=== PATIENT | female | born 1995 | race Caucasian/White ===

== ENCOUNTER 2018-07-22 03:29 | Inpatient (IN) | payer OTHER ==
[2018-07-22] MEDS ORDERED: SODIUM CHLORIDE FLUSH 0.9% 10 ML SYRINGE IVP PRN (07:55)
[2018-07-22] MEDS ORDERED: fentaNYL 100 MCG/2 ML VIAL IVP PRN (07:59)
[2018-07-22] MEDS ORDERED: LACTATED RINGERS 1,000 ML IV ONE (08:00)
[2018-07-22] MEDS: SODIUM CHLORIDE FLUSH 0.9% 10 ML SYRINGE IVP SCH (08:38)
[2018-07-22 09:02] LABS: BASOPHILS # (AUTO) 0.1 10^3/uL (0.0-0.1); BASOPHILS % (AUTO) 0.8 %; EOSINOPHILS # (AUTO) 0.2 10^3/uL (0.0-0.7); EOSINOPHILS % (AUTO) 1.4 %; HGB - HEMOGLOBIN 12.2 g/dL (12.0-16.0); LYMPHOCYTES # (AUTO) 1.2 10^3/uL (1.5-3.5); LYMPHOCYTES % (AUTO) 10.9 %; MEAN CORPUSCULAR HEMOGLOBIN 28.4 pg (27.0-31.0); MEAN CORPUSCULAR HGB CONC 33.3 g/dL (32.0-36.0); MEAN CORPUSCULAR VOLUME 85.4 fL (81.0-99.0); MEAN PLATELET VOLUME 9.9 fL (7.9-10.8); MONOCYTES # (AUTO) 0.6 10^3/uL (0.0-1.0); MONOCYTES % (AUTO) 4.9 %; NEUTROPHILS # (AUTO) 9.4 10^3/uL (1.5-6.6); PLT - PLATELET COUNT 214 10^3/uL (130-450); RED BLOOD COUNT 4.29 10^6/uL (4.20-5.40); RED CELL DISTRIBUTION WIDTH 15.8 % (12.0-15.0); WHITE BLOOD COUNT 11.5 x10^3/uL (4.8-10.8)
[2018-07-22] MEDS ORDERED: ONDANSETRON 4 MG/2 ML VIAL IVP PRN ×4 (09:20→22:26)
[2018-07-22] MEDS ORDERED: fent/BUPIV 2 MCG/0.125% 250 ML EP ONE ×2 (09:22→21:55)
[2018-07-22] MEDS: LACTATED RINGERS 1,000 ML IV SCH ×3 (09:47→18:33)
--- NOTE | 2018-07-22 10:11 | ANESTHESIA ---
Pre-Anesthesia VS, & Labs - Diagnosis Active labor - Procedure Labor epidural Vital Signs: Temp Pulse Resp BP Pulse Ox 36.9 C 108 H 20 138/72 H 100 07/22/18 04:05 07/22/18 04:05 07/22/18 04:05 07/22/18 04:05 07/22/18 04:05 Height 5 ft 3 in Weight (kg) 85.275 kg - NPO Other (Ice chips) - Is Patient ?: Yes - Lab Results Current Lab Results: Laboratory Tests 07/22/18 08:52: Blood Type A POSITIVE, Antibody Screen NEGATIVE 07/22/18 08:52: WBC 11.5 H, RBC 4.29, Hgb 12.2, Hct 36.7 L, MCV 85.4, MCH 28.4, MCHC 33.3, RDW 15.8 H, Plt Count 214, MPV 9.9, Neut # (Auto) 9.4 H, Lymph # (Auto) 1.2 L, [place] # (Auto) 0.6, Eos # (Auto) 0.2, Baso # (Auto) 0.1, Absolute Nucleated RBC 0.00, Nucleated RBC % 0.0 Fish Bones: 07/22/18 08:52 Home Medications and Allergies Active Medications Fentanyl (Fentanyl) 100 mcg IVP Q1HR PRN PRN Reason: PAIN Last Admin: 07/22/18 08:38 Dose: 100 mcg Lactated Ringer's (Lr) 1,000 mls @ 150 mls/hr IV .Q6H40M [facility] Last Admin: 07/22/18 09:47 Dose: 150 mls/hr Ondansetron HCl (Zofran Inj) 4 mg IVP Q4HR PRN PRN Reason: Nausea / Vomiting Last Admin: 07/22/18 09:27 Dose: 4 mg Sodium Chloride (Normal Saline Flush 0.9%) 10 ml IVP PRN PRN PRN Reason: NEEDED PER PROVIDER ORDERS Last Admin: 07/22/18 08:38 Dose: 10 ml Sodium Chloride (Normal Saline Flush 0.9%) 10 ml IVP 0100,0900,1700 [facility] Last Admin: 07/22/18 08:38 Dose: 10 ml Anes History & Medical History - Anesthetic History Anesthesia Complications: reports: No previous complications Family history of Anesthesia Complications: Denies Family history of Malignant Hyperthermia: Denies - Medical History Cardiovascular: reports: None Pulmonary: reports: None Gastrointestinal: reports: None Urinary: reports: None Neuro: reports: None Musculoskeletal: reports: None Endocrine/Autoimmune: reports: None Blood Disorders: reports: None Skin: reports: None Smoking Status: Never smoker Psychosocial: reports: No issues indicated Exam General: Alert Dental: WNL Mouth Opening: Greater than 4 Fingerbreadths Neck Mobility: Normal Mallampati classification: II Thyromental Distance: greater than 6 cm Plan Anesthesia Type: Epidural Consent for Procedure(s) Verified and Reviewed: Yes Code Status: Attempt Resuscitation ASA classification: 2-Mild systemic disease Is this case an emergency?: Yes
[2018-07-22] MEDS ORDERED: LACTATED RINGERS 500 ML IV ONE ×3 (10:13→22:26)
[2018-07-22] MEDS ORDERED: diphenhydrAMINE INJ 50 MG/ML VIAL IVP PRN ×3 (10:13→22:26)
[2018-07-22] MEDS ORDERED: ePHEDrine 50 MG/ML VIAL IVP PRN ×3 (10:13→22:26)
[2018-07-22] MEDS ORDERED: METOCLOPRAMIDE 10 MG/2 ML VIAL IVP PRN ×3 (10:13→22:26)
[2018-07-22] MEDS ORDERED: NALOXONE 0.4 MG/ML VIAL IVP PRN ×3 (10:13→22:26)
[2018-07-22] MEDS ORDERED: NALBUPHINE 10 MG/ML AMP IVP PRN ×3 (10:13→22:26)
--- NOTE | 2018-07-22 11:16 | HISTORY & PHYSICAL EXAMINATION ---
Chief Complaint - Chief Complaint Chief Complaint: CONTRACTIONS History of Present Illness - Admitted From Admitted From:: HOME - History Obtained From Records Reviewed: YES History obtained from: PATIENT Exam Limitations: NONE - History of Present Illness HPI Comment/Other: 22 y.o. 39 6/7 weeks [place] dependent presents to L&D in labor with Cx change during extended monitoring over 2 hours from 1-2 cm dilation to 4 cm dilation with regular uterine contractions q3-4 min. Patient admitted for delivery. PNC: uncomplicated. PMH: Neg Meds: PNV SHx: negative smoke/etoh/drugs NKDA PSH: BL eye surgery x 1, oral surgery labs: MBT A POS PNAS Neg Rubella POS Syphillis/HIV/HBsAg: NR x 3 HEP A & C NR x 2 GBS Neg Quad Screen: Too Late 1 hr GTT normal per patient history Immunizations: Flu and TDAP given during . History - Past Medical History Cardiovascular: reports: None Respiratory: reports: None Neuro: reports: None Endocrine/Autoimmune: reports: None GI: reports: None MACHINIST BENCH: reports: None : reports: None HEENT: reports: None Psych: reports: None Musculoskeletal: reports: None Derm: reports: None MRSA Hx?: No Review of Systems - All Other Systems All Other Systems: reports: Other (ROS NEGATIVE FOR ALL 13 SYSTEMS) Exam - Vital Signs Vital Signs: Vital Signs x48h Temp Pulse Resp BP Pulse Ox 07/22/18 04:05 36.9 C 108 H 20 138/72 H 100 - Physical Exam General Appearance: positive: No acute distress, Alert Eyes Bilateral: positive: Normal inspection ENT: positive: ENT inspection nml Neck: positive: Nml inspection Respiratory: positive: Chest non-tender, No respiratory distress Cardiovascular: positive: Regular rate & rhythm, No murmur Peripheral Pulses: positive: 2+ Abdomen: positive: Non-tender, No organomegaly, Other (UX GRAVID CWD, LEOPOLDS 7 1/2 LBS CX /-1/VTX/BOWI AT 0750) Conclusion/Plan - Problem List (1) Active labor Conclusion/Plan: # 39 6/7 weeks in active labor at 4/80/-1 admitted for delivery. # GBS Neg # Le[place] 7 1/2lbs, adequate pelvis. # Epidural for labor analgesia # Routine orders. SBAR given to Dr. Devi, [employer] concrete laborer who has assumed care of patient as of 0800. - Lab Results Fish Bones: 07/22/18 08:52
[2018-07-22] MEDS ORDERED: OXYTOCIN/SODIUM CHLORIDE 500 ML IV SCH (12:00)
[2018-07-22] MEDS ORDERED: ROPIVACAINE 0.2% PF 20 ML AMPULE ONE ×3 (13:49→23:39)
[2018-07-22] MEDS ORDERED: fentaNYL 100 MCG/2 ML VIAL ONE ×3 (13:51→23:25)
[2018-07-22] MEDS ORDERED: LACTATED RINGERS 250 ML IV ONE ×2 (14:05→17:07)
--- NOTE | 2018-07-22 14:05 | PROVIDER PROGRESS NOTE ---
Labor Progress Note - Uterine Monitoring Uterine Monitoring Mode: positive: External toco Contraction Frequency (min/apart): 3-4 Contraction Intensity: positive: Moderate to strong Uterine Resting Tone: positive: Soft - Monitoring Monitor Mode: positive: External ultrasound Heart Rate Baseline: 120-130 Heart Rate Variability: positive: Moderate (6-25 bmp) Accelerations: positive: Present, 10x10 (=/32 wks) Decelerations: positive: None - Vaginal Exam Dilation (in cm): 6 Effacement (%): 90% Station: -1 Cervical Position: Midposition - Labor Progress Note Labor Progress Note/Additional Text: Progressing AROM clear
--- NOTE | 2018-07-22 17:14 | PROVIDER PROGRESS NOTE ---
Labor Progress Note - Uterine Monitoring Uterine Monitoring Mode: positive: External toco Contraction Frequency (min/apart): 4 Contraction Intensity: positive: Moderate to strong Uterine Resting Tone: positive: Soft - Monitoring Monitor Mode: positive: External ultrasound Heart Rate Baseline: 160 Heart Rate Variability: positive: Moderate (6-25 bmp) Accelerations: positive: Absent Decelerations: positive: None Strip Review: positive: Category I - Vaginal Exam Dilation (in cm): 8 Effacement (%): 100% Station: 0 Cervical Position: Anterior - Labor Progress Note Labor Progress Note/Additional Text: good cervical progress increasing base line. pt has been ruptured only 3 hours watch for temp will start antibiotics if temp starts.
--- NOTE | 2018-07-22 19:31 | PROVIDER PROGRESS NOTE ---
Labor Progress Note - Uterine Monitoring Uterine Monitoring Mode: positive: External toco, IUPC Contraction Frequency (min/apart): q3 Contraction Intensity: positive: Moderate to strong Uterine Resting Tone: positive: Soft - Monitoring Monitor Mode: positive: External ultrasound Heart Rate Baseline: 180 Heart Rate Variability: positive: Moderate (6-25 bmp) Accelerations: positive: Present, 10x10 (=/32 wks) Decelerations: positive: None - Vaginal Exam Dilation (in cm): 10 Effacement (%): 100 Station: 0 Cervical Position: Anterior - Labor Progress Note Labor Progress Note/Additional Text: Temp 39.4 Ax suspect chorio Blood cultures Unasyn 3 gms Q6 work to delivery.
[2018-07-22] MEDS: ACETAMINOPHEN 500 MG TABLET PO PRN (20:03)
[2018-07-22] MEDS: AMPICILLIN/SULBACTAM 3 GM in SODIUM CHLORIDE 0.9% MINIBAG 100 ML IV SCH (20:04)
[2018-07-22] MEDS ORDERED: LACTATED RINGERS 1,000 ML IV SCH (20:56)
[2018-07-22] MEDS ORDERED: SODIUM CHLORIDE 0.9% IV SCH (21:00)
[2018-07-22] MEDS ORDERED: GENTAMICIN IV SCH (21:00)
[2018-07-22] MEDS ORDERED: SODIUM CHLORIDE 0.9% 1,000 ML IV ONE (21:31)
[2018-07-22] MEDS ORDERED: SODIUM CHLORIDE 0.9% 500 ML IV ONE (21:32)
--- NOTE | 2018-07-22 21:32 | PROVIDER PROGRESS NOTE ---
Labor Progress Note - Uterine Monitoring Uterine Monitoring Mode: positive: External toco (180) Contraction Frequency (min/apart): q2 min Contraction Intensity: positive: Moderate to strong Uterine Resting Tone: positive: Soft - Monitoring Monitor Mode: positive: External ultrasound Heart Rate Baseline: 180-190 Heart Rate Variability: positive: Minimal (0-5 bpm) Decelerations: positive: None Strip Review: positive: Category II - Vaginal Exam Dilation (in cm): 9 Effacement (%): 100 Station: 0 Cervical Position: Anterior - Labor Progress Note Labor Progress Note/Additional Text: Temp 39.1 Chorio Antibiotics Unasyn 3 gms Gent 224 mg IUPC placed to for contractions will infuse 250 ml
[2018-07-22 21:44] LABS: HGB - HEMOGLOBIN 11.8 g/dL (12.0-16.0); MEAN CORPUSCULAR HEMOGLOBIN 28.8 pg (27.0-31.0); MEAN CORPUSCULAR HGB CONC 33.8 g/dL (32.0-36.0); MEAN CORPUSCULAR VOLUME 85.1 fL (81.0-99.0); MEAN PLATELET VOLUME 9.5 fL (7.9-10.8); RED BLOOD COUNT 4.09 10^6/uL (4.20-5.40); RED CELL DISTRIBUTION WIDTH 15.6 % (12.0-15.0); WHITE BLOOD COUNT 14.1 x10^3/uL (4.8-10.8)
[2018-07-22 21:50] LABS: ALBUMIN 2.4 g/dL (3.2-5.5); ALBUMIN/GLOBULIN RATIO 0.6 (1.0-2.2); BILIRUBIN,TOTAL 0.5 mg/dL (0.2-1.0); CALCIUM 8.3 mg/dL (8.5-10.3); CREATININE 0.9 mg/dL (0.4-1.0); TOTAL PROTEIN 6.2 g/dL (6.7-8.2)
[2018-07-22] MEDS ORDERED: fent/BUPIV 2 MCG/0.125% 250 ML EP PRN (22:26)
--- NOTE | 2018-07-22 22:27 | PROVIDER PROGRESS NOTE ---
Labor Progress Note - Uterine Monitoring Uterine Monitoring Mode: positive: External toco Contraction Frequency (min/apart): 3 Contraction Intensity: positive: Moderate to strong Uterine Resting Tone: positive: Soft - Monitoring Monitor Mode: positive: External ultrasound Heart Rate Baseline: 160 Heart Rate Variability: positive: Minimal (0-5 bpm) Accelerations: positive: Present, 10x10 (=/32 wks) Decelerations: positive: None Strip Review: positive: Category II - Vaginal Exam Dilation (in cm): rim Effacement (%): 100 Station: 1 Cervical Position: Anterior - Labor Progress Note Labor Progress Note/Additional Text: Temp 38.6 improving Cervix is reducible with pushing. strip improving start pushing. will call peds for delivery.
[2018-07-22] MEDS ORDERED: LIDOCAINE-MPF 1% 30 ML VIAL ONE (23:27)
[2018-07-22] MEDS ORDERED: METHYLERGONOVINE 0.2 MG/ML AMP ONE (23:27)
[2018-07-23] MEDS ORDERED: LIDOCAINE-MPF 1% 30 ML VIAL ONE (00:05)
[2018-07-23] MEDS ORDERED: WITCH HAZEL/GLYCERIN 1 EACH MED..PAD TOP PRN (00:35)
[2018-07-23] MEDS ORDERED: HYDROCORTISONE 1% CREAM 28 GM TUBE PR PRN (00:35)
[2018-07-23] MEDS ORDERED: BENZOCAINE SPRAY MM PRN (00:41)
--- NOTE | 2018-07-23 00:49 | DELIVERY NOTE ---
Delivery Note - Labor Labor: positive: Augmented by ARM, Augmented by oxytocin - Infant Delivery Method Delivery Method: positive: Spontaneous vaginal delivery - Presentation Presentation: positive: Vertex, Compound (left hand), JUDIT - right occiput anterior - Nuchal Cord Nuchal Cord: positive: None - Anesthetic Anesthetic Type: Anesthetic: positive: Lidocaine - 1% plain - Amniotic Fluid Description Amniotic Fluid Description: positive: Thick meconium - Episiotomy Type Episiotomy Type: positive: None - Laceration Laceration: positive: 2nd degree, Labial (bilateral labial) - Suture Suture Type: positive: Vicryl Suture Size: positive: 3-0 - Delivery Outcome Delivery Outcome: positive: Livebirth - [place]: positive: Placed in direct skin contact with mother, Bulb syringe [place] sex: positive: Female - Cord Cord: positive: 3 vessels - Placenta Placenta: positive: Intact - Estimated Blood Loss Estimated Blood Loss (in cc): 300 - Post Delivery Events Post Delivery Events: positive: No post delivery events - Delivery Comments (Free Text/Narrative) Delivery Comments (Free Text/Narrative): pt AROM at 1400 developed tachycardia into the 180 and then temps 39.2 Rxed with Unasyn 3 gms adn Gent 240 mg, tylenol and amnioinfusion Deffervessed Copmplete at 2235 Delivered at 2332 Placenta 2340 Live female Apgare 8/9 weight 8lb, 10oz
[2018-07-23] MEDS: LACTATED RINGERS 1,000 ML IV SCH (01:15)
[2018-07-23] MEDS: SODIUM CHLORIDE FLUSH 0.9% 10 ML SYRINGE IVP SCH ×4 (01:19→14:22)
[2018-07-23] MEDS: ACETAMINOPHEN 500 MG TABLET PO PRN ×4 (01:47→20:44)
[2018-07-23] MEDS: oxyCODONE 5 MG TABLET PO PRN ×4 (01:47→22:15)
[2018-07-23] MEDS: IBUPROFEN 800 MG TABLET PO SCH ×4 (01:47→20:45)
[2018-07-23] MEDS: AMPICILLIN/SULBACTAM 3 GM in SODIUM CHLORIDE 0.9% MINIBAG 100 ML IV SCH ×4 (01:49→20:44)
[2018-07-23 06:50] LABS: BASOPHILS # (AUTO) 0.1 10^3/uL (0.0-0.1); BASOPHILS % (AUTO) 0.4 %; EOSINOPHILS # (AUTO) 0.1 10^3/uL (0.0-0.7); EOSINOPHILS % (AUTO) 0.7 %; HGB - HEMOGLOBIN 11.1 g/dL (12.0-16.0); LYMPHOCYTES # (AUTO) 1.7 10^3/uL (1.5-3.5); LYMPHOCYTES % (AUTO) 11.2 %; MEAN CORPUSCULAR HEMOGLOBIN 28.2 pg (27.0-31.0); MEAN CORPUSCULAR HGB CONC 32.6 g/dL (32.0-36.0); MEAN CORPUSCULAR VOLUME 86.6 fL (81.0-99.0); MEAN PLATELET VOLUME 9.8 fL (7.9-10.8); MONOCYTES # (AUTO) 1.2 10^3/uL (0.0-1.0); MONOCYTES % (AUTO) 7.8 %; NEUTROPHILS % (AUTO) 79.9 %; PLT - PLATELET COUNT 184 10^3/uL (130-450); RED BLOOD COUNT 3.94 10^6/uL (4.20-5.40)
[2018-07-23] MEDS: DOCUSATE SODIUM 100 MG CAPSULE PO SCH ×2 (08:25→20:45)
--- NOTE | 2018-07-23 09:33 | PROVIDER PROGRESS NOTE ---
Subjective - Prog Note Date Prog Note Date: 07/23/18 Prog Note Time: 09:31 - Subjective Pt reports feeling: Improved Subjective: Pain is 4/10. upon questioning Pt she stated that control is acquit. Most pain is at the perneum Objective - Vital Signs/Intake & Output Reviewed Vital Signs: Yes Vital Signs: Vital Signs x48h Temp Pulse Resp BP Pulse Ox 07/23/18 08:30 36.9 C 65 18 106/59 L 100 07/23/18 02:05 37 C 75 18 121/65 07/23/18 01:45 107 H 111/62 Intake & Output: Intake & Output 07/20/18 07/21/18 07/22/18 07/23/18 23:59 23:59 23:59 23:59 Intake Total 3221.55 1486.25 Output Total 210 1800 Balance 3011.55 -313.75 - Objective General Appearance: positive: No acute distress, Alert Respiratory: positive: Chest non-tender, No respiratory distress, Breath sounds nml Cardiovascular: positive: Regular rate & rhythm, No murmur, No gallop Abdomen: positive: Non-tender, Mass (U-0) Skin: positive: Color nml, No rash, Warm, Dry Extremities: negative: Calf tenderness, Jannette's sign/cords Neurologic/Psychiatric: positive: Oriented x3 - Lab Results Fish Bones: 07/23/18 06:10 07/22/18 21:33 Other Labs: Lab Results x24hrs 07/23/18 07/22/18 07/22/18 Range/Units 06:10 21:33 21:33 WBC 15.0 H 14.1 H (4.8-10.8) x10^3/uL RBC 3.94 L 4.09 L (4.20-5.40) 10^6/uL Hgb 11.1 L 11.8 L (12.0-16.0) g/dL Hct 34.1 L 34.8 L (37.0-47.0) % MCV 86.6 85.1 (81.0-99.0) fL MCH 28.2 28.8 (27.0-31.0) pg MCHC 32.6 33.8 (32.0-36.0) g/dL RDW 16.0 H 15.6 H (12.0-15.0) % Plt Count 184 192 (130-450) 10^3/uL MPV 9.8 9.5 (7.9-10.8) fL Neut # (Auto) 12.0 H (1.5-6.6) 10^3/uL Lymph # (Auto) 1.7 (1.5-3.5) 10^3/uL [place] # (Auto) 1.2 H (0.0-1.0) 10^3/uL Eos # (Auto) 0.1 (0.0-0.7) 10^3/uL Baso # (Auto) 0.1 (0.0-0.1) 10^3/uL Absolute Nucleated RBC 0.00 x10^3/uL Nucleated RBC % 0.0 /100WBC Sodium 130 L (135-145) mmol/L Potassium 3.9 (3.5-5.0) mmol/L Chloride 97 L (101-111) mmol/L Carbon Dioxide 19 L (21-32) mmol/L Anion Gap 14.0 H (6-13) BUN 11 (6-20) mg/dL Creatinine 0.9 (0.4-1.0) mg/dL Estimated GFR (MDRD) 78 L (>89) Glucose 97 (70-100) mg/dL Calcium 8.3 L (8.5-10.3) mg/dL Total Bilirubin 0.5 (0.2-1.0) mg/dL AST 26 (10-42) IU/L ALT 10 (10-60) IU/L Alkaline Phosphatase 134 H (42-121) IU/L Total Protein 6.2 L (6.7-8.2) g/dL Albumin 2.4 L (3.2-5.5) g/dL Globulin 3.8 (2.1-4.2) g/dL Albumin/Globulin Ratio 0.6 L (1.0-2.2) Blood Type Antibody Screen 07/22/18 Range/Units 08:52 WBC (4.8-10.8) x10^3/uL RBC (4.20-5.40) 10^6/uL Hgb (12.0-16.0) g/dL Hct (37.0-47.0) % MCV (81.0-99.0) fL MCH (27.0-31.0) pg MCHC (32.0-36.0) g/dL RDW (12.0-15.0) % Plt Count (130-450) 10^3/uL MPV (7.9-10.8) fL Neut # (Auto) (1.5-6.6) 10^3/uL Lymph # (Auto) (1.5-3.5) 10^3/uL [place] # (Auto) (0.0-1.0) 10^3/uL Eos # (Auto) (0.0-0.7) 10^3/uL Baso # (Auto) (0.0-0.1) 10^3/uL Absolute Nucleated RBC x10^3/uL Nucleated RBC % /100WBC Sodium (135-145) mmol/L Potassium (3.5-5.0) mmol/L Chloride (101-111) mmol/L Carbon Dioxide (21-32) mmol/L Anion Gap (6-13) BUN (6-20) mg/dL Creatinine (0.4-1.0) mg/dL Estimated GFR (MDRD) (>89) Glucose (70-100) mg/dL Calcium (8.5-10.3) mg/dL Total Bilirubin (0.2-1.0) mg/dL AST (10-42) IU/L ALT (10-60) IU/L Alkaline Phosphatase (42-121) IU/L Total Protein (6.7-8.2) g/dL Albumin (3.2-5.5) g/dL Globulin (2.1-4.2) g/dL Albumin/Globulin Ratio (1.0-2.2) Blood Type A POSITIVE Antibody Screen NEGATIVE Sepsis Event Note (H) - Evaluation Current Stage of Sepsis: Resolved Possible source of Sepsis: positive: Genitourinary Confirmed Source and Organism (if known) of Sepsis: suspected intraammonitic - Sepsis Criteria Sepsis Criteria: Recorded Temperature greater than 38.3C or Less than 36C, Recorded Heart Rate greater than 90 bpm, WBC count greater than 12,000 or less than 4000
[2018-07-23] MEDS ORDERED: AMPICILLIN/SULBACTAM 3 GM in SODIUM CHLORIDE 0.9% MINIBAG 100 ML IV SCH (12:00)
[2018-07-23] MEDS ORDERED: GENTAMICIN 240 MG in SODIUM CHLORIDE 0.9% 100ML 100 ML IV SCH (21:00)
[2018-07-24] MEDS: ACETAMINOPHEN 500 MG TABLET PO PRN ×4 (02:22→23:13)
[2018-07-24] MEDS: IBUPROFEN 800 MG TABLET PO SCH ×4 (02:23→23:13)
[2018-07-24 06:47] LABS: BASOPHILS # (AUTO) 0.1 10^3/uL (0.0-0.1); BASOPHILS % (AUTO) 0.8 %; EOSINOPHILS # (AUTO) 0.2 10^3/uL (0.0-0.7); EOSINOPHILS % (AUTO) 2.6 %; HGB - HEMOGLOBIN 10.9 g/dL (12.0-16.0); LYMPHOCYTES % (AUTO) 22.1 %; MEAN CORPUSCULAR HEMOGLOBIN 28.6 pg (27.0-31.0); MEAN CORPUSCULAR HGB CONC 32.8 g/dL (32.0-36.0); MEAN CORPUSCULAR VOLUME 87.1 fL (81.0-99.0); MEAN PLATELET VOLUME 9.2 fL (7.9-10.8); MONOCYTES # (AUTO) 0.6 10^3/uL (0.0-1.0); MONOCYTES % (AUTO) 6.5 %; NEUTROPHILS # (AUTO) 6.1 10^3/uL (1.5-6.6); PLT - PLATELET COUNT 157 10^3/uL (130-450); RED BLOOD COUNT 3.83 10^6/uL (4.20-5.40); RED CELL DISTRIBUTION WIDTH 15.9 % (12.0-15.0)
[2018-07-24] MEDS: DOCUSATE SODIUM 100 MG CAPSULE PO SCH ×2 (09:06→23:10)
--- NOTE | 2018-07-24 11:32 | PROVIDER PROGRESS NOTE ---
Subjective - Prog Note Date Prog Note Date: 07/24/18 Prog Note Time: 11:29 - Subjective Pt reports feeling: Improved (5/10 Pt notes good control) Objective - Vital Signs/Intake & Output Reviewed Vital Signs: Yes Intake & Output: Intake & Output 07/21/18 07/22/18 07/23/18 07/24/18 23:59 23:59 23:59 23:59 Intake Total 3221.55 2902.25 Output Total 210 1800 Balance 3011.55 1102.25 - Objective General Appearance: positive: No acute distress, Alert Respiratory: positive: Chest non-tender, No respiratory distress, Breath sounds nml Cardiovascular: positive: Regular rate & rhythm, No murmur, No gallop Abdomen: positive: Non-tender, Nml bowel sounds, No distention, Mass (U-3) Skin: positive: Color nml, No rash, Warm, Dry Extremities: negative: Calf tenderness, Jannette's sign/cords - Lab Results Fish Bones: 07/24/18 06:35 07/22/18 21:33 Other Labs: Lab Results x24hrs 07/24/18 Range/Units 06:35 WBC 9.0 (4.8-10.8) x10^3/uL RBC 3.83 L (4.20-5.40) 10^6/uL Hgb 10.9 L (12.0-16.0) g/dL Hct 33.3 L (37.0-47.0) % MCV 87.1 (81.0-99.0) fL MCH 28.6 (27.0-31.0) pg MCHC 32.8 (32.0-36.0) g/dL RDW 15.9 H (12.0-15.0) % Plt Count 157 (130-450) 10^3/uL MPV 9.2 (7.9-10.8) fL Neut # (Auto) 6.1 (1.5-6.6) 10^3/uL Lymph # (Auto) 2.0 (1.5-3.5) 10^3/uL [place] # (Auto) 0.6 (0.0-1.0) 10^3/uL Eos # (Auto) 0.2 (0.0-0.7) 10^3/uL Baso # (Auto) 0.1 (0.0-0.1) 10^3/uL Absolute Nucleated RBC 0.00 x10^3/uL Nucleated RBC % 0.0 /100WBC Sepsis Event Note (H) - Evaluation Current Stage of Sepsis: Resolved Possible source of Sepsis: positive: Genitourinary - Sepsis Criteria Sepsis Criteria: Recorded Temperature greater than 38.3C or Less than 36C, Recorded Heart Rate greater than 90 bpm, WBC count greater than 12,000 or less than 4000 Assessment/Plan - Problem List (1) (spontaneous vaginal delivery) Impression: recovering well (2) Chorioamnionitis Impression: White count normalized no symptoms Afebrile
[2018-07-24] MEDS: SIMETHICONE CHEW 80 MG TABLET PO SCH (23:08)
[2018-07-24] MEDS: SODIUM CHLORIDE FLUSH 0.9% 10 ML SYRINGE IVP SCH (23:09)
[2018-07-25] MEDS: oxyCODONE 5 MG TABLET PO PRN (00:34)
[2018-07-25] MEDS: ACETAMINOPHEN 500 MG TABLET PO PRN (04:56)
[2018-07-25] MEDS: IBUPROFEN 800 MG TABLET PO SCH ×2 (04:57→07:56)
[2018-07-25] MEDS: LACTATED RINGERS 1,000 ML IV SCH ×3 (07:54→07:56)
[2018-07-25] MEDS: SIMETHICONE CHEW 80 MG TABLET PO SCH ×4 (07:54→07:57)
[2018-07-25] MEDS: SODIUM CHLORIDE FLUSH 0.9% 10 ML SYRINGE IVP SCH ×3 (07:55→07:57)
[2018-07-25] MEDS: DOCUSATE SODIUM 100 MG CAPSULE PO SCH (07:56)
--- NOTE | 2018-07-25 08:40 | PROVIDER PROGRESS NOTE ---
Subjective - Prog Note Date Prog Note Date: 07/25/18 Prog Note Time: 08:37 - Subjective Pt reports feeling: Improved (Pain 2/10.) Objective - Vital Signs/Intake & Output Reviewed Vital Signs: Yes Vital Signs: Vital Signs x48h Temp Pulse Resp BP Pulse Ox 07/25/18 04:30 36.7 C 70 18 135/79 H 99 Intake & Output: Intake & Output 07/22/18 07/23/18 07/24/18 07/25/18 23:59 23:59 23:59 23:59 Intake Total 3221.55 2902.25 Output Total 210 1800 Balance 3011.55 1102.25 - Objective General Appearance: positive: No acute distress, Alert Respiratory: positive: Chest non-tender, No respiratory distress, Breath sounds nml Cardiovascular: positive: Regular rate & rhythm, No murmur, No gallop Abdomen: positive: Non-tender, No organomegaly, Nml bowel sounds, Mass (U-3. nontender) Extremities: positive: Pedal edema (3+). negative: Calf tenderness, Joint swelling - Lab Results Fish Bones: 07/24/18 06:35 07/22/18 21:33 Sepsis Event Note (H) - Evaluation Current Stage of Sepsis: Resolved Possible source of Sepsis: positive: Genitourinary - Sepsis Criteria Sepsis Criteria: Recorded Temperature greater than 38.3C or Less than 36C, Recorded Heart Rate greater than 90 bpm, WBC count greater than 12,000 or less than 4000 Assessment/Plan - Problem List (1) (spontaneous vaginal delivery) Impression: Pt is doing well. Send home Discharge medications Motrin 600 mg breast feeding reviewed. (2) Chorioamnionitis Impression: resolved
--- NOTE | 2018-07-25 08:42 | Discharge Plan ---
Discharge Plan Disposition: 01 Home, Self Care Condition: Good Diet: Regular Activity Restrictions: pelvic rest 6 weeks Shower Restrictions: No Driving Restrictions: No No Smoking: If you smoke, Please STOP! Call for help.
[2018-07-25 09:20] VITALS: BP 138/81
--- NOTE | 2018-07-25 13:56 | Labor Flowsheet ---
Labor Flowsheet Datetime Report Generated by CPN: 07/25/2018 13:56 Datetime: 07/25/2018 08:34 VITAL SIGNS NBP Sys/Alicia/Mean (mmHg): 139 : 81 : 92 Pulse: 75 LaborFlag: Labor Datetime: 07/25/2018 04:30 SpO2 (%): 99 Datetime: 07/22/2018 23:47 Membranes Ruptured Date/Time: 07/22/2018 14:00 Datetime: 07/22/2018 23:32 ASSESSMENT A Monitor Mode: External US FHR Baseline Rate : 150 Comments: Delivery of viable female infant apgars 8/9 Datetime: 07/22/2018 23:30 UTERINE ACTIVITY Monitor Mode: Internal Frequency (min): 1-2 Quality: Strong Duration (sec): 60-100 Pattern: Normal: <= 5 Contractions in 10 Minutes Resting Tone (Palpate): Relaxed Variability: Minimal - Undetectable to <=5 bpm Accelerations: None Decelerations: None Datetime: 07/22/2018 23:22 Anesthesia Comments: anesthesia returns to bedside and administers bolus through epidural catheter. See anesthesia documenation. Datetime: 07/22/2018 23:20 Patient Care Comments: set up for delivery Datetime: 07/22/2018 22:45 Contraction Comments: patient pushing FHR Baseline Changes: Return to Previous Baseline Category: Category I Datetime: 07/22/2018 22:35 VAGINAL EXAM Dilatation (cm): 10.0 Datetime: 07/22/2018 22:30 Resting Tone IUP (mmHg): 40 Intensity IUP (mmHg): 20-80 Datetime: 07/22/2018 22:20 Station: 1 Vaginal Exam Comments: trial push with provider at perineum. Patient able to move baby to +1 statio n . Patient remains a "reducable anterior lip" per provider and orders received to change plan of car e to begin active pushing. Datetime: 07/22/2018 22:03 Communication Comments: provider made aware of urine output 20cc urine and increasing concentrated color of urine Datetime: 07/22/2018 22:00 [place] Units (mmHg): 150 ANESTHESIA Anesthesia Plans: anesthesia on way to change epidural bag and place orders for continous infusion. Anesthesia Level Check: T9 Datetime: 07/22/2018 21:54 Temperature (C): 38.2 Datetime: 07/22/2018 21:50 Membrane Comments: amnioinfusion complete Datetime: 07/22/2018 21:40 MEDICATIONS Pitocin (milliunits): Increased to @ (Annotations: 4) Datetime: 07/22/2018 21:33 Amniotic Fluid Color: Light Meconium Datetime: 07/22/2018 21:26 Medication Comments: gentamicin infusion complete Datetime: 07/22/2018 21:15 Respirations: 26 Exam by: Dr. Devi (Annotations: provider states the cervix is reduceable) Oxygen Amount (LPM): 10 Oxygen Method: Non-Rebreather Datetime: 07/22/2018 20:48 Pitocin Checklist: At Least 1 Acceleration of 15 bpm x 15 Seconds in 30 Minutes or Adequate Variabi lity; No More than 1 Late Deceleration Occurred in Past 30 Minutes; No More than 2 Variable Decelerat ions > 60 Seconds in Duration and decreasing >60 bpm in 30 minutes; No More than 5 Uterine Contractio ns in 10 Minutes for any 20 Minute Interval; Uterus Palpates Soft between Contractions Datetime: 07/22/2018 20:42 Antibiotics: Start Antibiotics; Gentamicin IV (mg) @ (Annotations: 262mg gentamicin infusion begins) Datetime: 07/22/2018 20:41 Membrane Status: Ruptured Amniotic Fluid Amount: Small Amniotic Fluid Odor: Normal Datetime: 07/22/2018 20:15 DTR's/Clonus: DTRs Absent Headache: Denies Breath Sounds, Left: Clear and Equal Breath Sounds, Right: Clear and Equal Nausea/Vomiting: Denies Datetime: 07/22/2018 20:00 Analgesics/Sedatives: Tylenol (mg) @ (Annotations: 1000) PATIENT CARE IV/Blood Work: IV Bolus Started COMMUNICATION Communication: Provider made aware of 8cc hourly urine output and FHR basline 195-205. and orders r ecived to initiate 500 cc LR bolus. bolus initated. antibiotic infusion begins. Datetime: 07/22/2018 19:27 Vital Sign Comments: axillary Datetime: 07/22/2018 19:23 Effacement (%): 100 Datetime: 07/22/2018 19:10 Provider Reviewed Strip: Yes Strip Reviewed by: Dr. Devi Notification Reason: Status Update; Status; Labor Status Datetime: 07/22/2018 18:20 Patient Position/Activity: High Fowlers Datetime: 07/22/2018 17:35 Pain Presence: None/Denies Datetime: 07/22/2018 17:03 Vaginal Bleeding: Normal Show Cervix, Consistency: Soft Cervix, Position: Anterior Datetime: 07/22/2018 15:21 PAIN Pain Scale: 4 Pain Type: Contraction; Stabbing Pain Assessment Comments: NECKTIE TURNER Vaughan notified pt is requesting more pain control Datetime: 07/22/2018 14:33 Monitor Interventions for UA: [place] Adjusted Datetime: 07/22/2018 14:00 Membranes Rupture Method: Artificial Datetime: 07/22/2018 13:30 Pain Coping: Sleeping Datetime: 07/22/2018 10:26 I/O Interventions: [place] Cath Inserted Datetime: 07/22/2018 09:53 Epidural Procedure Other: Pump Started Datetime: 07/22/2018 09:47 Epidural Procedure: Loading Dose Datetime: 07/22/2018 09:34 Antiemetics/Antacids: Zofran (mg) @ 4 Datetime: 07/22/2018 09:21 PROCEDURE TIME OUT Procedure Verify: Correct Patient Identity; Correct Side and Site are Marked; Accurate Procedure Co nsent Form; Agreement on Procedure to be Done; Correct Patient Position; Safety Precautions Based on Patient History or Medication Use Datetime: 07/22/2018 09:18 Stage of : Labor Datetime: 07/22/2018 09:13 MATERNAL ASSESSMENT Level of Consciousness: Fully Conscious RUQ Epigastric Pain: Denies
--- NOTE | 2018-08-03 12:13 | DISCHARGE SUMMARY ---
Physician: Bret Devi MD DATE OF ADMISSION: 07/22/2018 DATE OF DISCHARGE: 07/25/2018 ADMITTING DIAGNOSES 1. Term cyesis. 2. Active labor. DISCHARGE DIAGNOSES 1. Term cyesis. 2. Active labor. 3. Chorioamnionitis. 4. Spontaneous vaginal delivery. PROCEDURES 1. Epidural. 2. Pitocin augmentation. 3. Artificial rupture of membranes. 4. Antibiotics. 5. Amnioinfusion. 6. Spontaneous vaginal delivery. 7. Repair of a second-degree perineal laceration, as well as bilateral labial lacerations. PRESENTING HISTORY: Patient is a 22-year-old G1, P0 female at 39 and 6/7 weeks, who was a transfer f [facility] as their Labor and Delivery was closed. She presented with cervical change following observ ation over 2 hours. Her OB course was unremarkable at this time. She was negative for medical probl ems. She has had bilateral eye surgery, oral surgery. She denies any bad habits. Her labs show her to be rubella immune. Her STI checks were negative. She was GBS negative. She has a normal 1-hour GTT. PHYSICAL EXAMINATION: On examination on admission showed a cervix which had progressed from 1-2 cm t o 4 cm. LABORATORIES: Her admission CBC showed a white count of 11.5, hemoglobin was 12.2, hematocrit was 36 .7, platelets were 214. Her white count reached a zenith on the first day at 15.0. Hemog lobin dropped to a yoon of 10.9 on date of discharge. Her platelets reached a yoon of 157. Her PI H labs were all within normal limits. Her creatinine was 0.9. Her AST and ALT were both normal. He r alkaline phosphatase was elevated, as to be expected. HOSPITAL COURSE: Patient was admitted because of cervical progress. She progressed well. Her membr anes were artificially ruptured. At 1400, she developed a tachycardia, followed by fevers, at which point she was started on Unasyn, as well as gentamicin. To try and defervesce her, an amnioinf usion was performed, which was successful. She reached complete at 2235, and delivered at 2332 a daily e female , Apgars 8 and 9, weighing 8 pounds 10 ounces. Her course was unremarkable . She defervesced almost immediately after delivery. Her white count also regressed. She was kept on her antibiotics for 24 hours. She was discharged to home on Motrin 600 mg. We discussed breast f eeding, as well as contraception. She was instructed to follow up in the office. TD: 08/03/2018 11:31
== END 2018-07-25 12:00 | disposition home or self-care (01) | DRG 805 ==
LOC: WFO 03:29 → EDBD 03:29 → FBP 03:33 → WFO 07:54 → FBP 07:55
PROVIDERS: ADMIT Obstetrics & Gynecology; ATTEND Obstetrics & Gynecology
PROC: 10907ZC Drainage of Amniotic Fluid, Therapeutic from Products of Conception, Via Natural or Artificial Opening (ICD-10-PCS; 2018-07-22)
PROC: 10E0XZZ Delivery of Products of Conception, External Approach (ICD-10-PCS; principal; 2018-07-23)
PROC: 0KQM0ZZ Repair Perineum Muscle, Open Approach (ICD-10-PCS; 2018-07-23)
PROC: 0HQ9XZZ Repair Perineum Skin, External Approach (ICD-10-PCS; 2018-07-23)
DX: O64.5XX0 Obstructed labor due to compound presentation, not applicable or unspecified (principal); O75.3 Other infection during labor; Z37.0 Single live birth; O76 Abnormality in fetal heart rate and rhythm complicating labor and delivery; O77.0 Labor and delivery complicated by meconium in amniotic fluid; O70.0 First degree perineal laceration during delivery; O70.1 Second degree perineal laceration during delivery; Z3A.40 40 weeks gestation of pregnancy
CPT/HCPCS: 36415; 80053; 85025; 85027; 86850; 86900; 86901; 87040; A9270; J1580; J7120

== ENCOUNTER 2020-03-05 07:48 | Outpatient (CLI) | payer OTHER ==
--- NOTE | 2020-03-05 15:13 | Ultrasound Report ---
PROCEDURE: OB Detailed Eval INDICATIONS: SCREENING OUTSIDE/PRIOR DATING DATA: Last menstrual period (LMP): 10/04/2019. LMP-based estimated date of delivery (DARRELL): 07/10/2020. First dating scan (date and location): 03/05/2020, [facility]. Estimated date of delive ry (DARRELL) from first dating scan: 06/27/2020. TECHNIQUE: Real-time scanning was performed of the fetus, with image documentation and biometric measurements. COMPARISON: Exam from outside institution have been requested, but not available at the time of the examination. FINDINGS: General: A single living intrauterine gestation is present. Presentation: Variable Placenta: Placental position is posterior, low lying, without previa. It is located approximately 2 .2 cm from the cervical os. Amniotic fluid index: 11.6 cm, within normal limits for gestational age. Largest pocket measures 3 .7 cm. heart rate: 162 beats per minute. Maternal cervical canal: 4.8 cm long; normal length is 2.5 cm or more. biometrics: Biparietal diameter: 5.4 cm 22 weeks 3 days Head circumference: 21.3 cm 23 weeks 3 days Abdominal circumference: 19.8 cm 24 weeks 3 days Femur length: 4.2 cm 20 weeks 6 days Estimated gestational age from initial scan: not applicable. Composite gestational age from present scan: 23 weeks 5 days Estimated weight : 6 3 g Measurement variability in biometric dating: +/- 10 days from 12-20 weeks gestation, +/- 2 weeks from 20-30 weeks gestation, +/- 3 weeks at 30 weeks gestation or later. Anatomic survey: Neuro: Ventricles are normal at less than 10 mm. Cisterna magna is normal at 3-11 mm. Cerebellum i s normal in size and morphology. Nuchal skin fold: Normal at less than 6 mm between 14 and 20 weeks gestational age. Face: Nose and lips, facial profile are normal. Spine: No evidence for spina bifida. Heart: 4-chambered heart is present, with normal ventricular outflow tracts. Diaphragm: Diaphragm is intact. Stomach: Left-sided stomach is present. Kidneys: No hydronephrosis. Normal is less than 5 mm in 2nd trimester, less than 7 mm in 3rd trimester. Cord: 3 vessel cord has orthotopic insertion. Bladder: Normal in size. Extremities: All 4 extremities are visualized. IMPRESSION: 1. Single live intrauterine with ultrasound gestational age today of 23 weeks 5 days which corresponds to ultrasound DARRELL of 06/27/2020. It is noted that outside exams have been requested althou gh not received at time of current exam. If and when they become available, an addendum will be issue d reflecting any changes in dating. 2. Anatomy is within normal limits. Reviewed by: Gogo Ratliff MD on 03/05/2020 3:11 PM PDT Approved by: Gogo Ratliff MD on 03/05/2020 3:11 PM PDT Station ID: [id number]
== END 2020-03-05 07:49 | disposition home or self-care (01) ==
LOC: DI 07:48
PROVIDERS: ATTEND Advanced Practice Midwife
DX: Z36.89 Encounter for other specified antenatal screening (principal)
CPT/HCPCS: 76811

== ENCOUNTER 2020-04-04 11:57 | Outpatient (CLI) | payer OTHER ==
[2020-04-04 13:07] LABS: HGB - HEMOGLOBIN 10.6 g/dL (12.0-16.0); MEAN CORPUSCULAR HEMOGLOBIN 29.7 pg (27.0-31.0); MEAN CORPUSCULAR HGB CONC 32.3 g/dL (32.0-36.0); MEAN CORPUSCULAR VOLUME 91.9 fL (81.0-99.0); MEAN PLATELET VOLUME 11.3 fL (7.9-10.8); RED BLOOD COUNT 3.57 10^6/uL (4.20-5.40); RED CELL DISTRIBUTION WIDTH 13.7 % (12.0-15.0); WHITE BLOOD COUNT 9.9 x10^3/uL (4.8-10.8)
== END 2020-04-04 11:58 | disposition home or self-care (01) ==
LOC: LAB 11:57
PROVIDERS: ATTEND Nurse Practitioner Obstetrics & Gynecology
DX: Z36.89 Encounter for other specified antenatal screening (principal)
CPT/HCPCS: 36415; 82950; 85027

== ENCOUNTER 2020-05-15 11:53 | Outpatient (CLI) | payer OTHER ==
[2020-05-15 12:02] LABS: HGB - HEMOGLOBIN 10.4 g/dL (12.0-16.0); MEAN CORPUSCULAR HGB CONC 31.9 g/dL (32.0-36.0); MEAN CORPUSCULAR VOLUME 87.9 fL (81.0-99.0); MEAN PLATELET VOLUME 11.4 fL (7.9-10.8); RED BLOOD COUNT 3.71 10^6/uL (4.20-5.40); RED CELL DISTRIBUTION WIDTH 14.1 % (12.0-15.0); WHITE BLOOD COUNT 9.2 x10^3/uL (4.8-10.8)
== END 2020-05-15 11:54 | disposition home or self-care (01) ==
LOC: LAB 11:53
PROVIDERS: ATTEND Nurse Practitioner Obstetrics & Gynecology
DX: O99.019 Anemia complicating pregnancy, unspecified trimester (principal)
CPT/HCPCS: 36415; 85027

== ENCOUNTER 2020-05-22 | Outpatient (CLI) | payer OTHER ==
--- NOTE | 2020-05-22 18:04 | PROCEDURE REPORT ---
- HPI Current EDU 06/21/20 Gestation 35 Weeks and 5 Days 2 Para 1 Vital Signs Temperature 36.8 C 05/22/20 10:31 Heart Rate 107 H 05/22/20 10:31 Respiratory Rate 18 05/22/20 10:31 Blood Pressure 122/69 05/22/20 10:31 Temperature 36.8 C 05/22/20 10:31 Heart Rate 107 H 05/22/20 10:31 Respiratory Rate 18 05/22/20 10:31 Blood Pressure 122/69 05/22/20 10:31 O2 Saturation - NST Procedure NST Procedure Start Date 05/22/20 Start Time 10:35 Stop Time 10:27 Patient States Movement Yes - Results and Plan Findings/Impression: NST performed : 05/22/2020 NST read: 05/22/2020 S: [facility] phone consult with CNM for falling on the ice. She fell on her back side, and her abdomen was not involved. She denies ctx, VB, or LOF +FM O: FHT 150s with moderate variability, accels, no decels A: 25 yo35.5wk who sustained a nonsevere fall injury not involving her abdomen Reassuring NST P: Continue with routine care Final Diagnosis: Fall while
== END 2020-05-22 11:30 | disposition home or self-care (01) ==
CPT/HCPCS: 59025; 99212

== ENCOUNTER 2020-05-28 14:58 | Outpatient (CLI) | payer OTHER ==
--- NOTE | 2020-05-29 09:57 | Ultrasound Report ---
PROCEDURE: OB F/U or Repeat INDICATIONS: UTERINE SIZE/DATE DISCREPANCY OUTSIDE/PRIOR DATING DATA: Last menstrual period (LMP): 10/04/2019. LMP-based estimated date of delivery (DARRELL): 07/10/2020. First dating scan (date and location): Not available. Estimated date of delivery (DARRELL) from first dating scan: 05/28/2020 according to provided. TECHNIQUE: Real-time scanning was performed of the fetus, with image documentation and biometric measurements. Endovaginal scanning: Not performed COMPARISON: 03/05/2020. FINDINGS: General: A single living intrauterine gestation is present. Presentation: Vertex Placenta: Placental position is posterior fundal, without previa. Amniotic fluid index: 12.3 cm, normal and at 36% for gestational age. heart rate: 145 beats per minute. Maternal cervical canal: 4.4 cm long; normal length is 2.5 cm or more. biometrics: Biparietal diameter: 8.8 cm, 35 weeks, 3 days Head circumference: 32 cm, 36 weeks, 1 day Abdominal circumference: 32.7 cm, 36 weeks, 4 days Femur length: 6.8 cm, 35 weeks, 0 day Estimated gestational age from initial scan: 36 weeks, 4 day Composite gestational age from present scan: 35 weeks 6 days Estimated weight and percentile: 2820 g, 38% Measurement variability in biometric dating: +/- 10 days from 12-20 weeks gestation, +/- 2 weeks from 20-30 weeks gestation, +/- 3 weeks at 30 weeks gestation or more. Other: Largest pocket of amniotic fluid measures 6 cm. Bilateral adnexa show no gross abnormalities. chest, stomach, bilateral kidneys and urinary bladder are visualized and are within normal limi ts. IMPRESSION: 1. Single live intrauterine with heart rate measures 145 bpm. Fetus is in vertex pres entation. Normal amount of amniotic fluid at 12 cm. Estimated weight is at 38th percentile. Reviewed by: Ke Russ MD on 05/29/2020 9:56 AM PST Approved by: Ke Russ MD on 05/29/2020 9:56 AM PST Station ID: [id number]
== END 2020-05-28 14:59 | disposition home or self-care (01) ==
LOC: DI 14:58
PROVIDERS: ATTEND Nurse Practitioner Obstetrics & Gynecology
DX: O26.843 Uterine size-date discrepancy, third trimester (principal)

== ENCOUNTER 2020-05-29 08:00 | Outpatient (CLI) | payer OTHER | END 2020-05-29 23:59 | disposition home or self-care (01) | LOC: LAB.N 08:00 | PROVIDERS: ATTEND Advanced Practice Midwife | DX: Z34.90 Encounter for supervision of normal pregnancy, unspecified, unspecified trimester (principal); Z36.85 Encounter for antenatal screening for Streptococcus B | CPT/HCPCS: 87797 ==

== ENCOUNTER 2020-06-15 10:52 | Inpatient (IN) | payer OTHER ==
[2020-06-15] MEDS ORDERED: OXYTOCIN/SODIUM CHLORIDE 500 ML IV SCH (11:20)
[2020-06-15] MEDS ORDERED: fentaNYL 100 MCG/2 ML VIAL IVP PRN (11:28)
[2020-06-15] MEDS ORDERED: SODIUM CHLORIDE FLUSH 0.9% 10 ML SYRINGE IVP PRN (11:28)
--- NOTE | 2020-06-15 12:21 | HISTORY & PHYSICAL EXAMINATION ---
HPI - History of Present Illness HPI Comment/Other: CC: contractions HPI: contractions today. No LOF. Some light bleeding PMH: abnl pap, anemia during PSH: eye surgery, wisdom teeth, dental bone grafts SH: no t/e/d. 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 SOPHIE wnl. 3VC. Repeat US--normal placenta Glucola : 139 TDAP 04/04/2020 Influenza - 04/04/2020 GBS neg HSV: denies self and partner Breast pump Rx: 04/04/2020 MOD: . Spouse: Quirino. Daughter 2 in jul; 8#11oz. Girl: Diamond pp contraception: discussed PAP: 01/10/2020- Negative. (previous pap 05/09/2018- [facility]) per [facility] recc followup in one year, or 12/2020. [place] Problems: --Anemia, HCT 32 in April --Varicella non-immune --S<D, normal EFW 38%ile in April --[facility] pap, repap due 12/2020 PMH/PSH - Past Medical History Cardiovascular: positive: None Respiratory: positive: None Neuro: positive: None Endocrine/Autoimmune: positive: None GI: positive: None [employer]: positive: None : positive: None HEENT: positive: None Psych: positive: None Musculoskeletal: positive: None Derm: positive: None MRSA Hx?: No Social & Family Hx - Social History Smoking Status: Never smoker Meds/Allgy - Allergies Allergies/Adverse Reactions: Allergies Allergy/AdvReac Type Severity Reaction Status Date / Time No Known Drug Allergies Allergy Verified 07/22/18 19:42 Exam - Vital Signs Reviewed Vital Signs: Yes Vital Signs: Vital Signs x48h Temp 06/15/20 12:00 98.1 F - Physical Exam Comments/Other: aVSS Alert, smiling, grimace with UC, UC palpate strong SVE 4cm with RN [place] vertex and 8# Category 1 NST [place] not picking up well Impression/Plan - Problem List Problem List: 24yo at 39w1d by LMP c/w 16w US with spontaneous labor 4cm at admission. Fetus: category 1 NST, vertex, EFW 8#, normal US, normal QS Labor: minimize SVE due to hx of chorio. GBS neg. Pain control as desired. Problems: --Anemia, HCT 32 in April. Recheck CBC pending --Varicella non-immune vax PP. Rh+, RI, s/;p flu vax and Tdap --LSIL pap, repap due 12/2020
[2020-06-15 12:32] LABS: BASOPHILS % (AUTO) 0.3 %; EOSINOPHILS % (AUTO) 0.2 %; HGB - HEMOGLOBIN 10.7 g/dL (12.0-16.0); LYMPHOCYTES # (AUTO) 1.6 10^3/uL (1.5-3.5); LYMPHOCYTES % (AUTO) 11.9 %; MEAN CORPUSCULAR HEMOGLOBIN 26.4 pg (27.0-31.0); MEAN CORPUSCULAR VOLUME 85.2 fL (81.0-99.0); MONOCYTES # (AUTO) 0.7 10^3/uL (0.0-1.0); NEUTROPHILS # (AUTO) 11.1 10^3/uL (1.5-6.6); NEUTROPHILS % (AUTO) 82.2 %; PLT - PLATELET COUNT 203 10^3/uL (130-450); RED BLOOD COUNT 4.05 10^6/uL (4.20-5.40); WHITE BLOOD COUNT 13.5 x10^3/uL (4.8-10.8)
[2020-06-15] MEDS ORDERED: ONDANSETRON 4 MG/2 ML VIAL IVP PRN ×2 (12:37→14:23)
[2020-06-15 12:47] LABS: ALBUMIN 3.1 g/dL (3.2-5.5); ALBUMIN/GLOBULIN RATIO 0.8 (1.0-2.2); ALKALINE PHOSPHATASE 117 IU/L (42-121); ALT ALANINE AMINOTRANSFERASE 10 IU/L (10-60); AST ASPARTATE AMINOTRANSFERASE 15 IU/L (10-42); BILIRUBIN,TOTAL 0.5 mg/dL (0.2-1.0); BUN - BLOOD UREA NITROGEN < 5 mg/dL (6-20); CALCIUM 9.3 mg/dL (8.5-10.3); CARBON DIOXIDE - CO2 21 mmol/L (21-32); CHLORIDE 105 mmol/L (101-111); CREATININE 0.4 mg/dL (0.4-1.0); GLUCOSE 84 mg/dL (70-100); SODIUM 138 mmol/L (135-145); TOTAL PROTEIN 7.2 g/dL (6.7-8.2)
[2020-06-15] MEDS: LACTATED RINGERS 1,000 ML IV ONE ×2 (13:31→15:45)
[2020-06-15] MEDS ORDERED: ROPIVACAINE 0.2% 200 MG/100 ML BAG EP ONE (13:48)
--- NOTE | 2020-06-15 14:21 | ANESTHESIA PROCEDURE NOTE ---
Anesthesia Epidural Template - Patient Report Patient Reports: positive: Pain controlled (Epidural placed woth ease. Pt claims to feel "100% better" with subsequent contraction after epidural placement.) - Plan Plan: positive: Continue current management
[2020-06-15] MEDS ORDERED: NALBUPHINE 10 MG/ML AMP IVP PRN (14:23)
[2020-06-15] MEDS ORDERED: ePHEDrine 50 MG/ML VIAL IVP PRN (14:23)
[2020-06-15] MEDS ORDERED: METOCLOPRAMIDE 10 MG/2 ML VIAL IVP PRN (14:23)
[2020-06-15] MEDS ORDERED: diphenhydrAMINE INJ 50 MG/ML VIAL IVP PRN (14:23)
[2020-06-15] MEDS ORDERED: NALOXONE 0.4 MG/ML VIAL IVP PRN (14:23)
[2020-06-15] MEDS ORDERED: LACTATED RINGERS 1,000 ML IV ONE (15:40)
[2020-06-15] MEDS ORDERED: miSOPROStoL 200 MCG TABLET BC PRN (15:59)
[2020-06-15] MEDS ORDERED: METHYLERGONOVINE 0.2 MG/ML VIAL IM PRN (15:59)
[2020-06-15] MEDS ORDERED: CARBOPROST TROMETHAMINE 250 MCG/ML AMP IM PRN (15:59)
[2020-06-15] MEDS ORDERED: TRANEXAMIC ACID 1,000 MG in SODIUM CHLORIDE 0.9% 100ML 100 ML IV PRN (15:59)
[2020-06-15] MEDS ORDERED: OXYTOCIN/SODIUM CHLORIDE 500 ML IV PRN (15:59)
[2020-06-15] MEDS ORDERED: LIDOCAINE-MPF 1% 30 ML VIAL ID PRN (15:59)
[2020-06-15] MEDS ORDERED: OXYTOCIN 10 UNIT/ML VIAL IM PRN (15:59)
[2020-06-15] MEDS: LACTATED RINGERS 1,000 ML IV SCH ×2 (16:34→17:03)
[2020-06-15] MEDS ORDERED: ONDANSETRON ODT 4 MG TABLET TL PRN (18:10)
[2020-06-15] MEDS ORDERED: diphenhydrAMINE 25 MG CAPSULE PO PRN (18:10)
[2020-06-15] MEDS ORDERED: WITCH HAZEL/GLYCERIN 1 PAD TOP PRN (18:10)
--- NOTE | 2020-06-15 18:16 | DELIVERY NOTE ---
Delivery Note - Labor Labor: positive: Spontaneous - Delivery Method Delivery Method: positive: Spontaneous vaginal delivery - Presentation Presentation: positive: Vertex - Nuchal Cord Nuchal Cord: positive: None - Anesthetic Anesthetic Type: - Amniotic Fluid Description Amniotic Fluid Description: positive: Clear - Episiotomy Type Episiotomy Type: positive: None - Laceration Laceration: positive: None - Delivery Outcome Delivery Outcome: positive: Livebirth - Mcintosh Mcintosh: positive: Placed in direct skin contact with mother, Stimulated, Warmed, [place] used Mcintosh sex: positive: Female - Cord Cord: positive: 3 vessels - Placenta Placenta: positive: Intact, Spontaneous - Estimated Blood Loss Estimated Blood Loss (in cc): 100 - Post Delivery Events Post Delivery Events: positive: No post delivery events
[2020-06-15] MEDS ORDERED: LACTATED RINGERS 1,000 ML IV SCH (19:00)
[2020-06-15] MEDS: HYDROCORTISONE 1% CREAM 28 GM TUBE PR PRN (19:42)
[2020-06-15] MEDS: ACETAMINOPHEN 500 MG TABLET PO SCH (19:43)
[2020-06-15] MEDS: IBUPROFEN 600 MG TABLET PO SCH (19:43)
[2020-06-15] MEDS: DOCUSATE SODIUM 100 MG CAPSULE PO SCH (21:21)
[2020-06-15] MEDS ORDERED: ACETAMINOPHEN 500 MG TABLET PO SCH (22:00)
[2020-06-16] MEDS: IBUPROFEN 600 MG TABLET PO SCH ×3 (01:16→14:47)
[2020-06-16] MEDS: ACETAMINOPHEN 500 MG TABLET PO SCH ×3 (02:04→18:15)
[2020-06-16] MEDS: oxyCODONE 5 MG TABLET PO PRN ×2 (02:59→09:30)
[2020-06-16] MEDS: DOCUSATE SODIUM 100 MG CAPSULE PO SCH (08:59)
--- NOTE | 2020-06-16 11:21 | DISCHARGE SUMMARY ---
Discharge Summary Admit Date: 06/15/20 Discharge Date: 06/16/20 Discharging Provider: Daisy - DIAGNOSES Admission Diagnoses: IUP at 39+1 wga Active labor Discharge Diagnoses with Status of Each Condition: Same and delivery of term gestation - HPI History of Present Illness: 24yo at 39w1d by LMP c/w 16w US with spontaneous labor 4cm at admission. Hx of chorioamnionitis in prior delivery. HCT at 32 at last assessment. Fetus: category 1 NST, vertex, EFW 8#, normal US, normal QS Labor: minimize SVE due to hx of chorio. GBS neg. Pain control as desire - HOSPITAL COURSE Hospital Course: Patient admitted in labor. Epidural for pain management. GBs negative, antibiotics not indicated. Clear amniotic fluid. Uncomplicated vaginal delivery with EBL 100 cc. course was uncomplicated. By PPD#1, patient was meeting goals for discharge. Routine DC instructions given. Varicella non-immune. Will need outpatient immunization. - ALLERGIES Allergies/Adverse Reactions: Allergies Allergy/AdvReac Type Severity Reaction Status Date / Time No Known Drug Allergies Allergy Verified 07/22/18 19:42 - LABS Result Diagrams: 06/15/20 12:20 06/15/20 12:20 - FOLLOW UP Follow Up: 1 week with REUBEN Gong CNM - TIME SPENT Time Spent in Discharge (Minutes): 30
--- NOTE | 2020-06-16 11:26 | Discharge Plan ---
Discharge Plan Problem Reviewed?: Yes Disposition: Home, Self Care Condition: Good Prescriptions: Docusate Sodium 100Mg Capsule [Colace 100Mg Capsule] 100 - 200 mg PO BID PRN #60 capsule PRN Reason: Constipation Ibuprofen [Motrin] 600 mg PO Q6H PRN #90 tab PRN Reason: Pain Acetaminophen [Tylenol] 650 mg PO Q6H PRN #90 tablet PRN Reason: PRN PAIN &/OR FEVER Diet: Regular Activity Restrictions: Additional Comments (Nothing in the vagina for 6 weeks: No intercourse, tampons, douching Call for: -Fever greater than 100.5 - Pain that does not improve with pain medication -Heavy bleeding in which you are soaking a pad an hour for 2 hours in a row) Shower Restrictions: Yes (No tub baths or hot tubs for 4 weeks) Driving Restrictions: No Additional Instructions or Follow Up instructions: Ibuprofen 600 mg by mouth every 6 hours as needed for pain Acetaminophen 500-1000 mg by mouth every 8 hours as needed for pain Docusate 100-200 mg by mouth twice a day as needed for constipation No Smoking: If you smoke, Please STOP! Call for help.
--- NOTE | 2020-06-16 11:28 | PROVIDER PROGRESS NOTE ---
Subjective - Prog Note Date Prog Note Date: 06/16/20 Prog Note Time: 11:26 - Subjective Subjective: Patient is up and ambulating, tolerating po, and voiding. Pain is well managed with pain medications. . Patient has taken oxycodone x2. Trying to avoid narcotics at this time. Breast-feeding going well. Minimal lochia. Objective - Vital Signs/Intake & Output Reviewed Vital Signs: Yes Vital Signs: Vital Signs x48h Temp Pulse Resp BP Pulse Ox 06/16/20 08:58 97.9 F 06/16/20 08:54 88 16 123/77 100 Intake & Output: Intake & Output 06/13/20 06/14/20 06/15/20 06/16/20 23:59 23:59 23:59 23:59 Intake Total 8049.250 2276 Output Total 900 Balance 429.775 7173 - Objective General Appearance: positive: No acute distress Neck: positive: Nml inspection Respiratory: positive: No respiratory distress Cardiovascular: positive: Other (RR) Abdomen: positive: Non-tender (S&NT/ND. FF below umbi) Skin: positive: Color nml Extremities: positive: Non-tender, No pedal edema Neurologic/Psychiatric: positive: Oriented x3 - Lab Results Fish Bones: 06/15/20 12:20 06/15/20 12:20 Other Labs: Lab Results x24hrs 06/15/20 06/15/20 06/15/20 Range/Units 12:20 12:20 12:20 WBC 13.5 H (4.8-10.8) x10^3/uL RBC 4.05 L (4.20-5.40) 10^6/uL Hgb 10.7 L (12.0-16.0) g/dL Hct 34.5 L (37.0-47.0) % MCV 85.2 (81.0-99.0) fL MCH 26.4 L (27.0-31.0) pg MCHC 31.0 L (32.0-36.0) g/dL RDW 16.0 H (12.0-15.0) % Plt Count 203 (130-450) 10^3/uL MPV 12.0 H (7.9-10.8) fL Neut # (Auto) 11.1 H (1.5-6.6) 10^3/uL Lymph # (Auto) 1.6 (1.5-3.5) 10^3/uL [place] # (Auto) 0.7 (0.0-1.0) 10^3/uL Eos # (Auto) 0.0 (0.0-0.7) 10^3/uL Baso # (Auto) 0.0 (0.0-0.1) 10^3/uL Absolute Nucleated RBC 0.00 x10^3/uL Nucleated RBC % 0.0 /100WBC Sodium 138 (135-145) mmol/L Potassium 3.9 (3.5-5.0) mmol/L Chloride 105 (101-111) mmol/L Carbon Dioxide 21 (21-32) mmol/L Anion Gap 12.0 (6-13) BUN < 5 L (6-20) mg/dL Creatinine 0.4 (0.4-1.0) mg/dL Estimated GFR (MDRD) 196 (>89) Glucose 84 (70-100) mg/dL Calcium 9.3 (8.5-10.3) mg/dL Total Bilirubin 0.5 (0.2-1.0) mg/dL AST 15 (10-42) IU/L ALT 10 (10-60) IU/L Alkaline Phosphatase 117 (42-121) IU/L Total Protein 7.2 (6.7-8.2) g/dL Albumin 3.1 L (3.2-5.5) g/dL Globulin 4.1 (2.1-4.2) g/dL Albumin/Globulin Ratio 0.8 L (1.0-2.2) Blood Type A POSITIVE Antibody Screen NEGATIVE Assessment/Plan - Problem List (1) (spontaneous vaginal delivery) Impression: PPD#1: Doing well Meeting goals for discharge DC at 24 hours pending clearance of infant for discharge Routine DC instructions given.
[2020-06-16] MEDS: HYDROCORTISONE 1% CREAM 28 GM TUBE PR PRN (12:13)
[2020-06-16 16:19] VITALS: BP 112/64
--- NOTE | 2020-06-16 18:29 | Labor Flowsheet ---
Labor Flowsheet Datetime Report Generated by CPN: 06/16/2020 18:29 Datetime: 06/16/2020 16:05 VITAL SIGNS NBP Sys/Alicia/Mean (mmHg): 112 : 64 : 76 Pulse: 67 Datetime: 06/15/2020 19:00 Stage of : Recovery Datetime: 06/15/2020 18:21 Pain Presence: None/Denies Datetime: 06/15/2020 18:05 PAIN Pain Scale: 0 Datetime: 06/15/2020 18:01 LaborFlag: Labor Datetime: 06/15/2020 17:58 Medication Comments: pit up Datetime: 06/15/2020 17:55 UTERINE ACTIVITY Monitor Mode: External Frequency (min): 1.5-2 Quality: Strong Duration (sec): 60-80 Pattern: Normal: <= 5 Contractions in 10 Minutes Resting Tone (Palpate): Relaxed ASSESSMENT A Monitor Mode: External US FHR Baseline Changes: No Baseline Change Variability: Moderate 6-25 bpm Accelerations: 15X15 Decelerations: Late Actions for Decelerations: Side to Side; Sterile Vaginal Exam; Provider Notified Category: Category II Comments: provider in room, will start pushing Patient Care Comments: walker out, 200ml in bag Datetime: 06/15/2020 17:51 VAGINAL EXAM Dilatation (cm): 10.0 Effacement (%): 100 Station: 1 Exam by: gambs Cervix, Consistency: Soft Cervix, Position: Anterior Datetime: 06/15/2020 17:16 PATIENT CARE Patient Position/Activity: High Fowlers Datetime: 06/15/2020 17:13 Membrane Status: Ruptured Membranes Rupture Method: Spontaneous Amniotic Fluid Color: Clear Amniotic Fluid Amount: Moderate Datetime: 06/15/2020 17:08 Hygiene: Sylvia Care; Underpad Changed; Peripad Changed Datetime: 06/15/2020 16:49 Temperature (C): 37.1 Datetime: 06/15/2020 16:35 Anesthesia Level Check: T10- Umbilicus Datetime: 06/15/2020 16:17 Vaginal Exam Comments: lip noted on right side Datetime: 06/15/2020 16:11 COMMUNICATION Communication: Provider at Bedside Datetime: 06/15/2020 15:30 FHR Baseline Rate : 125 Datetime: 06/15/2020 15:03 I/O Interventions: Walker Cath Inserted Datetime: 06/15/2020 14:12 Anesthesia Comments: L=T12, R=T11 Datetime: 06/15/2020 13:59 ANESTHESIA Epidural Procedure: Test Dose Datetime: 06/15/2020 13:23 MEDICATIONS Analgesics/Sedatives: Fentanyl (mcg) @ 100mcg Datetime: 06/15/2020 13:21 Antiemetics/Antacids: Zofran (mg) @ 4mg Provider Notified (Name): Bimal Zhang [employer] Communication Comments: Requested provider come place epidural for patient, informed provider pt is getting Fentanyl now. Order for 1L LR bolus received from provider. Datetime: 06/15/2020 13:08 Pain Type: Cramping Pain Location: Abdomen; Back Pain Relief Measures: Comfort Measures Pain Assessment Comments: will notify anesthesia, will give 100mcg fentanyl IVP
== END 2020-06-16 18:21 | disposition home or self-care (01) | DRG 807 ==
LOC: WFO 10:52 → FBP 10:56 → WFO 11:27 → FBP 11:28
PROVIDERS: ADMIT Obstetrics & Gynecology; ATTEND Obstetrics & Gynecology
PROC: 10E0XZZ Delivery of Products of Conception, External Approach (ICD-10-PCS; principal; 2020-06-15)
DX: O80 Encounter for full-term uncomplicated delivery (principal); Z37.0 Single live birth; Z3A.39 39 weeks gestation of pregnancy; Z87.59 Personal history of other complications of pregnancy, childbirth and the puerperium
CPT/HCPCS: 80053; 85025; 86850; 86900; 86901; 87635; 99213; A9270; J7120; 36415; 81599

== ENCOUNTER 2020-07-03 07:00 | Outpatient (CLI) | payer OTHER ==
[2020-07-04 20:40] LABS: CANDIDA GROUP DNA NEGATIVE (NEGATIVE); CANDIDA KRUSEI DNA NEGATIVE (NEGATIVE); TRICHOMONAS VAGINALIS DNA NEGATIVE (NEGATIVE)
== END 2020-07-03 23:59 | disposition home or self-care (01) ==
LOC: LAB.R 07:00
PROVIDERS: ATTEND Advanced Practice Midwife
DX: N89.8 Other specified noninflammatory disorders of vagina (principal); R10.2 Pelvic and perineal pain
CPT/HCPCS: 87661; 87801

== ENCOUNTER 2021-04-22 22:20 | Emergency (ER) | payer OTHER ==
[2021-04-22 22:26] VITALS: BP 132/90
--- NOTE | 2021-04-22 22:26 | ED Physician Documentation ---
PD HPI HEENT - Stated complaint Stated Complaint: L EAR PX - Chief complaint Chief Complaint: Heent - History obtained from History obtained from: Patient - History of Present Illness Timing - onset: How many hours ago (2-3), Today Timing - duration: Hours Timing - details: Abrupt onset (she had had URI symptoms for several days, improving, and now with abrupt left ear pain and decreased hearing. had brief vertigo when blew nose and tried to equalize pressure. Not persistent.), Still present Location: Left ear Associated symptoms: Congestion (the past week, and has mostly improved.), Rhinorrhea. No: Fever, Cough Similar symptoms before: Has not had sx before Recently seen: Clinic (had negative COVID test couple days ago with the URI symptoms that was negative.) Review of Systems Constitutional: denies: Fever, Chills Ears: reports: Loss of hearing, Ear pain (today). denies: Drainage/discharge Nose: reports: Rhinorrhea / runny nose, Congestion Throat: reports: Sore throat Cardiac: denies: Chest pain / pressure Respiratory: denies: Cough GI: denies: Abdominal Pain, Nausea, Vomiting Skin: denies: Rash, Lesions Neurologic: denies: Focal weakness, Numbness, Headache PD PAST MEDICAL HISTORY - Past Medical History Cardiovascular: None Respiratory: None Neuro: None Endocrine/Autoimmune: None GI: None COMIC ARTIST: None : None HEENT: None Psych: None Musculoskeletal: None Derm: None - Present Medications Home Medications: Ambulatory Orders Medication Instructions Recorded Confirmed Acetaminophen [Tylenol] 650 mg PO Q6H PRN #90 tablet 06/16/20 Docusate Sodium 100Mg Capsule 100 - 200 mg PO BID PRN #60 capsule 06/16/20 [Colace 100Mg Capsule] Ibuprofen [Motrin] 600 mg PO Q6H PRN #90 tab 06/16/20 Amoxicillin 500 mg PO TID 7 Days #20 cap 04/22/21 Cetirizine [ZyrTEC] 10 mg PO BID 7 Days #15 tablet 04/22/21 dexAMETHasone [Decadron] 4 mg PO DAILY #5 tablet 04/22/21 - Allergies Allergies/Adverse Reactions: Allergies Allergy/AdvReac Type Severity Reaction Status Date / Time No Known Drug Allergies Allergy Verified 04/22/21 22:25 - Social History Smoking Status: Never smoker PD ED PE NORMAL - Vitals Vital signs reviewed: Yes - General General: Alert and oriented X 3, No acute distress, Well developed/nourished - HEENT HEENT: PERRL, EOMI (no noted nystagmus. ), Moist mucous membranes, Pharynx benign. No: Ears normal (right is normal with just perhaps mild fluid behind the TM. Left TM is markedly red, bulging but without perforation. Canal appears okay. ) - Neck Neck: Supple, no meningeal sign, No adenopathy - Cardiac Cardiac: RRR, No murmur - Respiratory Respiratory: Clear bilaterally - Derm Derm: Normal color, Warm and dry - Neuro Neuro: Alert and oriented X 3, No motor deficit, Normal speech Results - Vitals Vitals: Vital Signs - 24 hr 04/22/ 22:23 Temperature 36.5 C Heart Rate 76 Respiratory 14 Rate Blood Pressure 132/90 H O2 Saturation 100 Oxygen O2 Source Room air PD MEDICAL DECISION MAKING - ED course Complexity details: considered differential (seems non-COVID URI which is resolving and with now acute secondary left OM. ), d/w patient Departure - Departure Disposition: 01 Home, Self Care Clinical Impression: Upper respiratory infection Qualifiers: URI type: unspecified URI Qualified Code(s): J06.9 - Acute upper respiratory infection, unspecified Otitis media Qualifiers: Otitis media type: suppurative Chronicity: acute Laterality: left Recurrence: non-recurrent Spontaneous tympanic membrane rupture: without spontaneous rupture Qualified Code(s): H66.002 - Acute suppurative otitis media without spontaneous rupture of ear drum, left ear Condition: Stable Record reviewed to determine appropriate education?: Yes Instructions: ED Otitis Media Acute Adult Prescriptions: Amoxicillin 500 mg PO TID 7 Days #20 cap dexAMETHasone [Decadron] 4 mg PO DAILY #5 tablet Cetirizine [ZyrTEC] 10 mg PO BID 7 Days #15 tablet Comments: Stay well-hydrated. Amoxicillin 3 times a day for a week for the ear infection. The remainder symptoms of the viral upper respiratory infection should continue to improve. We would add in an antihistamine twice daily for the next several days to week and Decadron steroid anti-inflammatory to decrease inflammation through the eustachian tube and sinuses in order to promote drainage from the middle ear. This will improve the ear infection symptoms faster. I would anticipate improvement in your symptoms generally over the next 2 to 3 days and resolved certainly by 3 to 5 days. Tylenol or ibuprofen as needed for pains. You can use the hydrocodone tonight for sleep if needed for pain. It is an opiate so be wary of driving and machinery use and critical thinking if you are using the tablets. Mainly for resting or sleep for pain. There just for in the starter pack but should be adequate enough for the next day or 2. Recheck if not improving well over the next several days and return if worse. I transmitted the prescriptions to the [facility] pharmacy. Discharge Date/Time: 04/22/21 23:13
[2021-04-22] MEDS: ACETAMINOPHEN 325 MG TABLET PO STA (23:04)
[2021-04-22] MEDS: CETIRIZINE 10 MG TABLET PO STA (23:04)
[2021-04-22] MEDS: CHERRY SYRUP 10 ML UDC PO ONE (23:04)
[2021-04-22] MEDS: HYDROcod/ACET 5/325 Prepack 4 PO STA (23:04)
[2021-04-22] MEDS: AMOXICILLIN 250 MG CAPSULE PO STA (23:04)
[2021-04-22] MEDS: DEXAMETHASONE 10 MG/ML VIAL PO STA (23:04)
== END 2021-04-22 23:13 | disposition home or self-care (01) ==
LOC: ED 22:20
DX: J06.9 Acute upper respiratory infection, unspecified (principal); H66.002 Acute suppurative otitis media without spontaneous rupture of ear drum, left ear
CPT/HCPCS: 99283; A9270